=== PATIENT | male | born 1940 | race Two or more races ===

== ENCOUNTER 2021-10-06 13:10 | Emergency (ER) | payer OTHER ==
[~2021-10-06] VITALS: Ht 170.2 cm; Wt 85.3 kg
[2021-10-06] MEDS ORDERED: TOPROL XL100 M1 (14:07)
[2021-10-06] MEDS ORDERED: LOSARTAN POTAS100 MG (14:07)
[2021-10-06] MEDS ORDERED: LIPITOR40 M1 (14:08)
[2021-10-06] MEDS ORDERED: XARELTO20 M1 (14:08)
== END 2021-10-06 18:43 | disposition home or self-care (01) ==
LOC: ER 13:10
DX: E86.0 Dehydration (principal); R10.819 Abdominal tenderness, unspecified site; I11.9 Hypertensive heart disease without heart failure; I48.91 Unspecified atrial fibrillation; Z79.01 Long term (current) use of anticoagulants